=== PATIENT | female | born 1950 | race Caucasian/White ===

== ENCOUNTER 2021-03-13 22:58 | Emergency (ER) | payer OTHER ==
[~2021-03-13] VITALS: Ht 172.7 cm; Wt 110.5 kg
[2021-03-13] MEDS ORDERED: ACETAMINOPHEN325 M1 PO (23:10)
[2021-03-13] MEDS ORDERED: AMARYL4 MG PO (23:10)
[2021-03-13] MEDS ORDERED: GRALISE600 MG PO (23:10)
[2021-03-13] MEDS ORDERED: DULOXETINE HCL60 MG PO (23:10)
[2021-03-13] MEDS ORDERED: COMBIVENT RESPIM4 GM INH (23:11)
[2021-03-13] MEDS ORDERED: LANTUS SUBQ (23:11)
[2021-03-13] MEDS ORDERED: IMODIUM A-D2 M1 PO (23:11)
[2021-03-13] MEDS ORDERED: LEVO-T75 MCG PO (23:11)
[2021-03-13] MEDS ORDERED: MIRALAX119 GM PO (23:12)
[2021-03-13] MEDS ORDERED: METFORMIN HCL1000 M1 PO (23:12)
[2021-03-13] MEDS ORDERED: DAILY VALUE1 EAC1 PO (23:12)
[2021-03-13] MEDS ORDERED: LISINOPRIL-HCT1 EACH PO (23:12)
[2021-03-13] MEDS ORDERED: PROTONIX40 M2 PO (23:13)
[2021-03-13] MEDS ORDERED: TRAMADOL 50 MG50 MG PO (23:13)
[2021-03-13] MEDS ORDERED: VENTOLIN HFA 1818 GM INH (23:13)
[2021-03-13] MEDS ORDERED: SENNA8.8 MG/5 M PO (23:13)
[2021-03-13] MEDS ORDERED: SERTRALINE HCL25 M1 PO (23:13)
[2021-03-13] MEDS ORDERED: ZOCOR 10 MG TAB10 M1 PO (23:13)
[2021-03-13 23:37] LABS: ABSOLUTE EOSINOPHILS 0.1 thou/uL (0.0-0.7); ABSOLUTE LYMPHOCYTES 0.8 thou/uL (0.8-5.3); ABSOLUTE MONOCYTES 0.8 thou/uL (0.0-1.2); ABSOLUTE NEUTROPHILS 7.1 thou/uL (1.6-8.1); BASOPHILS 0.3 %; EOSINOPHILS 1.2 %; HEMATOCRIT 27.2 % (37.0-47.0); HEMOGLOBIN 8.7 gm/dL (12.0-15.0); LYMPHOCYTES 8.7 %; MCH 27.1 pg (26.0-34.0); MCHC 32.2 g/dL (28.0-37.0); MCV 84.3 fL (80.0-100.0); MONOCYTES 8.7 %; MPV 7.7 fl. (7.2-11.1); NUCLEATED RBCS 0 /100WBC; PLATELET COUNT* 276 thou/uL (150-400); POLYS 81.1 %; RBC 3.22 mil/uL (4.20-5.00); RDW-CV 14.8 % (10.5-14.5); WBC 8.7 thou/uL (4.0-11.0)
[2021-03-13 23:52] LABS: CALCIUM 8.3 mg/dL (8.5-10.1); CREATININE 1.4 mg/dL (0.6-1.3); MAGNESIUM 1.4 mg/dL (1.8-2.4); POTASSIUM 4.2 mmol/L (3.5-5.1)
[2021-03-14 00:02] LABS: URINE BILIRUBIN NEGATIVE (Negative); URINE BLOOD NEGATIVE (Negative); URINE CLARITY CLEAR; URINE COLOR YELLOW; URINE GLUCOSE-RANDOM NEGATIVE (Negative); URINE KETONES NEGATIVE (Negative); URINE LEUKOCYTES-REFLEX NEGATIVE (Negative); URINE PROTEIN NEGATIVE (Negative); URINE UROBILINOGEN 0.2 E.U./dl (0.2-1.0)
[2021-03-14 00:15] LABS: URINE NITRITE-REFLEX POSITIVE (Negative)
[2021-03-14 02:02] LABS: CASTS None Seen /LPF (None Seen); SQUAMOUS >10 Many /LPF (0-3)
[2021-03-14 02:03] LABS: URINE WBC-REFLEX 0-5 Rare /HPF (0-5)
[2021-03-14 02:04] LABS: BACTERIA-REFLEX >30 Many /HPF (None Seen); CRYSTALS None Seen /LPF (None Seen); URINE RBC 0-2 Rare /HPF (0-2)
[2021-03-14 04:10] VITALS: BP 117/92
== END 2021-03-14 04:10 | disposition home or self-care (01) ==
LOC: M.ERS 22:58
PROVIDERS: Emergency Medicine
DX: E11.649 Type 2 diabetes mellitus with hypoglycemia without coma (principal); J44.9 Chronic obstructive pulmonary disease, unspecified; E78.5 Hyperlipidemia, unspecified; F32.9 Major depressive disorder, single episode, unspecified; I11.0 Hypertensive heart disease with heart failure; I50.30 Unspecified diastolic (congestive) heart failure; K21.9 Gastro-esophageal reflux disease without esophagitis; M19.90 Unspecified osteoarthritis, unspecified site; E66.9 Obesity, unspecified; Z68.37 Body mass index [BMI] 37.0-37.9, adult; Z79.899 Other long term (current) drug therapy